=== PATIENT | male | born 1955 | race Caucasian/White ===

== ENCOUNTER 2018-06-09 05:35 | Outpatient (CLI) | payer MEDICARE, OTHER ==
[~2018-06-09] VITALS: Ht 188 cm; Wt 132.9 kg
[2018-06-09] MEDS ORDERED: GLUC-113 PO (12:17)
[2018-06-09] MEDS ORDERED: TRIA1TAB3 PO (12:17)
[2018-06-09] MEDS ORDERED: MULT-1029 PO (12:17)
[2018-06-09] MEDS ORDERED: NF-VITD400 PO (12:17)
[2018-06-09] MEDS ORDERED: SIMV40TA4 PO (12:17)
[2018-06-09] MEDS ORDERED: OMEG100032 PO (12:17)
[2018-06-09] MEDS ORDERED: TERB250T16 PO (12:17)
== END 2018-06-09 12:19 | disposition home or self-care (01) ==
LOC: PREOP 05:35
PROVIDERS: ATTEND Internal Medicine
DX: Z01.818 Encounter for other preprocedural examination (principal)

== ENCOUNTER 2018-06-16 07:08 | Day surgery (SDC) | payer MEDICARE, OTHER ==
--- NOTE | 2018-05-30 19:04 | HISTORY AND PHYSICAL ---
DATE OF SERVICE: COLONOSCOPY HISTORY AND PHYSICAL DATE OF ADMISSION: 06/16/2018. HISTORY OF PRESENT ILLNESS: The patient is a 63-year-old white male referred by Dr. Martínez for screening colonoscopy. He is deemed to be of higher than average risk secondary to a family history of colon cancer. The index case being his father diagnosed at the age of 69 reportedly succumbed to disease about 10 years later at the age of 79. The patient last underwent colonoscopy five and a half years ago. We obtained this record. He had a grade II internal hemorrhoid, but no evidence for neoplasia. No other abnormalities were reported. He reports that he has felt well. He has had no problems with the rectal pain and has had no bright red blood per rectum, melena, bowel habit change or abdominal pain. Weight has been stable with no reported weight loss. PAST MEDICAL HISTORY: Significant for hypertension with no known history of vascular disease. He has a history of mild arthritis and history of hyperlipidemia. MEDICATIONS ON ADMISSION: Include triamterene-hydrochlorothiazide 37.5/25 daily and simvastatin 40 mg at bedtime. He takes Centrum Silver, 400 units of vitamin D with a fish oil soft gel daily, and glucosamine chondroitin sulfate supplement two tabs daily. PAST SURGICAL HISTORY: He had open reduction and internal fixation of wrist fracture several years ago and at the age of 3, he had tonsillectomy and adenoidectomy. SOCIAL HISTORY: He is employed with no past smoking history and no significant alcohol history. PHYSICAL EXAMINATION: GENERAL: Reveals a well-appearing white male in no acute distress. VITAL SIGNS: He is overweight at 293.8 pounds. HEENT: Reveals a Mallampati class 3 oropharyngeal configuration. Pharynx reveals no evidence for erythema or exudate. NECK: Reveals no JVD, adenopathy or bruits. CHEST: Clear to auscultation. CARDIOVASCULAR: Reveals a regular rate and rhythm without murmur, S3 or S4. ABDOMEN: Obese, soft, supple, nontender without mass, tenderness or organomegaly. Bowel sounds are positive. EXTREMITIES: Reveal no cyanosis, clubbing or edema. ASSESSMENT AND PLAN: The patient was set up for screening colonoscopy on 06/16. Prep instructions were given and questions were answered. The rationale for colonoscopy were discussed. Not including dictation time, 35 minutes face to face care time was spent with another 10 minutes of staff time going over prep instructions and setting up the procedure. He is deemed to be of higher than average risk secondary to a first degree relative with colon cancer, see above. I thank you for the referral of this pleasant gentleman. Job ID: [id number] DocumentID: [id number] Dictated Date: 05/19/2018 10:07:14 Milk Receiver Tank Truck Date: 05/19/2018 10:37:24 Dictated By: ARCHIE MILES MD MTDD
[~2018-06-16] VITALS: Ht 188 cm; Wt 132.9 kg
[~2018-06-16 07:08] MED LIST: GLUC-113 PO; MULT-1029 PO; NF-VITD400 PO; OMEG100032 PO; SIMV40TA4 PO; TERB250T16 PO; TRIA1TAB3 PO
[2018-06-16] MEDS ORDERED: D5 LR IV SOLUTION 1,000 ML IV ONE (07:24)
[2018-06-16] MEDS ORDERED: D5 LR IV SOLUTION 1,000 ML IV STA (07:24)
[2018-06-16] MEDS ORDERED: MIDAZOLAM 2 MG/2 ML (VERSED) VIAL IVP ONE (07:30)
[2018-06-16] MEDS ORDERED: fentaNYL INJECTION 100 MCG/2 ML AMP IVP ONE (07:30)
[2018-06-16] MEDS ORDERED: LIDOCAINE JELLY 2% 6 ML SYRINGE MM PRN (07:30)
[2018-06-16 07:33] VITALS: BP 164/88
[2018-06-16] MEDS ORDERED: LIDOCAINE JELLY 2% 6 ML SYRINGE ONE (07:51)
[2018-06-16] MEDS ORDERED: MIDAZOLAM 2 MG/2 ML (VERSED) VIAL ONE ×2 (07:51)
[2018-06-16] MEDS ORDERED: fentaNYL INJECTION 100 MCG/2 ML AMP ONE (07:51)
[2018-06-16 08:40] VITALS: BP 145/68
--- NOTE | 2018-06-16 09:02 | Pre-Op Note & Conscious Sedat ---
Pre-Operative Progress Note H&P Reviewed The H&P was reviewed, patient examined and no changes noted. Date H&P Reviewed: Jun 16, 2018 Time H&P Reviewed: 07:45 Conscious Sedation Pre-Proced ASA Score 2 For ASA 3 and 4: Consider anesthesia and medical clearance. Also, for patients with a history of failed moderate sedation consider anesthesia. Airway Lungs Heart ASA score ASA 1: a normal healthy patient ASA 2: a patient with a mild systemic disease (mid diabetes, controlled hypertension, obesity ASA 3: a patient with a severe systemic disease that limits activity (angina , COPD, prior Myocardial infarction) ASA 4: a patient with an incapacitating disease that is a constant threat to life (CHF, renal failure) ASA 5: a moribund patient not expected to survive 24 hrs. (ruptured aneurysm) ASA 6: a declared brain patient whose organs are being harvested. For emergent operations, add the letter E after the classification Mallampati Classification Grade 3 Sedation Plan Analgesia, Amnesia, Plan communicated to team members, Discussed options with patient/fam, Discussed risks with patient/fam The patient is an appropriate candidate to undergo the planned procedure, sedation, and anesthesia. The patient immediately re-assessed prior to indication. ARCHIE MILES MD Jun 16, 2018 09:02
[2018-06-16 09:10] VITALS: BP 142/61
[2018-06-16 10:20] VITALS: BP 142/61
--- NOTE | 2018-06-16 17:07 | OPERATIVE REPORT ---
DATE OF SERVICE: 06/16/2018 COLONOSCOPY SUMMARY INDICATION FOR THE PROCEDURE: Screening colonoscopy. The patient is deemed to be at higher than average risk as his father was diagnosed with colon cancer in his early 60s. DESCRIPTION OF PROCEDURE: The patient was placed in left lateral decubitus position. Prior to undergoing colonoscopy, digital rectal evaluation was performed. Anal sphincter tone was normal and the perianal reflex intact. Due to this patient's body habitus, I was only able to palpate the apex and distal, likely half of the prostate, which was unremarkable, anodular and not enlarged to digital inspection. No abnormalities noted on digital inspection of anal canal or distal rectal vault. The colonoscope was then inserted into the rectum and under direct visualization advanced to the cecum. The cecum was identified by identification of the ileocecal valve and cecal strap. Photographic documentation was obtained. Careful inspection was made as the colonoscope was of withdrawn. The patient tolerated the procedure well. FINDINGS: There is no evidence for internal or external hemorrhoids were noted. The rectum was unremarkable. The sigmoid colon was unremarkable except for a few small diverticula without evidence for diverticulitis. The descending and transverse colon were normal. Hepatic flexure was unremarkable. Present in the mid ascending colon was a 3 x 4 mm sessile adenomatous appearing polyp. It was photographed and biopsied and ablated with no subsequent blood loss. The remainder of the ascending colon and cecum were unremarkable. ASSESSMENT: One diminutive mid ascending adenomatous appearing polyp was biopsied and cauterized today. No other evidence for neoplasia was noted. We will await histopathology report before making surveillance colonoscopy recommendation, likely no longer than 5 years considering family history. The patient had mild diverticular disease confined to the sigmoid colon and due to body habitus, I was only able to palpate roughly the distal half of his prostate that was unremarkable. I thank you for the referral of this pleasant gentleman. Job ID: [id number] DocumentID: [id number] Dictated Date: 06/16/2018 11:58:33 Repair Operator Date: 06/16/2018 17:06:15 Dictated By: ARCHIE MILES MD [facility]
== END 2018-06-16 10:20 | disposition home or self-care (01) ==
LOC: ENDO 07:08
PROVIDERS: ATTEND Internal Medicine
DX: Z12.11 Encounter for screening for malignant neoplasm of colon (principal); D12.2 Benign neoplasm of ascending colon; Z80.0 Family history of malignant neoplasm of digestive organs; K57.30 Diverticulosis of large intestine without perforation or abscess without bleeding; I10 Essential (primary) hypertension; E78.5 Hyperlipidemia, unspecified; Z79.899 Other long term (current) drug therapy
CPT/HCPCS: 88305

== ENCOUNTER 2018-09-27 05:36 | Outpatient (CLI) | payer MEDICARE, OTHER ==
[~2018-09-27] VITALS: Ht 188 cm; Wt 137.0 kg
[2018-09-27] MEDS ORDERED: ECHI125T PO (15:17)
== END 2018-09-27 15:46 | disposition home or self-care (01) ==
LOC: PREOP 05:36
PROVIDERS: ATTEND Podiatrist Foot & Ankle Surgery
DX: Z01.818 Encounter for other preprocedural examination (principal)

== ENCOUNTER 2018-10-02 09:04 | Day surgery (SDC) | payer MEDICARE, OTHER ==
[~2018-10-02] VITALS: Ht 188 cm; Wt 137.0 kg
[~2018-10-02 09:04] MED LIST changes: +ECHI125T PO
[2018-10-02] MEDS ORDERED: LACTATED RINGERS 1,000 ML IV PRN (09:12)
[2018-10-02] MEDS ORDERED: ceFAZolin INJECTION 1,000 MG in WATER (STERILE) FOR INJECTION 10 ML IV ONE (09:15)
[2018-10-02 09:20] VITALS: BP 165/88
[2018-10-02] MEDS ORDERED: ceFAZolin INJECTION 1,000 MG ONE (09:21)
[2018-10-02] MEDS ORDERED: WATER (STERILE) FOR INJECTION 10 ML ONE (09:21)
[2018-10-02] MEDS ORDERED: BUPIVACAINE 0.5% 30 ML (SENSORCAINE) VIAL ONE (09:23)
[2018-10-02] MEDS ORDERED: LIDOCAINE 1% INJ 20 ML 20 ML VIAL ONE (09:23)
[2018-10-02] MEDS ORDERED: fentaNYL INJECTION 100 MCG/2 ML AMP ONE (09:27)
[2018-10-02] MEDS ORDERED: MIDAZOLAM 2 MG/2 ML (VERSED) VIAL ONE (09:27)
[2018-10-02] MEDS ORDERED: CATHETER FLUSH 10 ML SYR IV PRN (09:45)
--- NOTE | 2018-10-02 09:45 | Progress Note-Pre Operative ---
Pre-Operative Progress Note H&P Reviewed The H&P was reviewed, patient examined and no changes noted. Date Seen by Provider: Oct 02, 2018 Time Seen by Provider: :44 Date H&P Reviewed: Oct 02, 2018 Time H&P Reviewed: 09:44 Pre-Operative Diagnosis: Hammertoe Left Hallux MERCEDES LUX DPM Oct 02, 2018 09:45
[2018-10-02] MEDS ORDERED: PROPOFOL INJECTION 50 ML IV ONE ×2 (10:08→10:36)
[2018-10-02] MEDS ORDERED: ONDANSETRON 4 MG/2 ML (SDV) Z0FRAN ONE (10:09)
[2018-10-02] MEDS ORDERED: LACTATED RINGERS 1,000 ML IV SCH (11:01)
--- NOTE | 2018-10-02 11:01 | Progress Note-Post Operative ---
Post-Operative Progess Note Surgeon (s)/Electrical Checkout Mechanic (s) Surgeon MERCEDES LUX DPM Electrical Checkout Mechanic: none Pre-Operative Diagnosis Hammertoe Left Hallux Post-Operative Diagnosis Same Procedure & Operative Findings Date of Procedure 10/02/18 Procedure Performed/Findings Arthrodesis of the interphalangeal joint left hallux Anesthesia Type MAC Estimated Blood Loss Estimated blood loss (mL): Minimal Specimens/Packing Specimens Removed None MERCEDES LUX DPM Oct 02, 2018 11:01
[2018-10-02] MEDS ORDERED: CEPH500C PO (11:06)
[2018-10-02] MEDS ORDERED: ACHD5005 PO (11:06)
[2018-10-02] MEDS ORDERED: HYDROcodone/APAP 5 MG/325 MG (LORTAB) TAB PO PRN (11:15)
[2018-10-02] MEDS ORDERED: ONDANSETRON 4 MG/2 ML (SDV) Z0FRAN IVP PRN (11:15)
[2018-10-02] MEDS ORDERED: HYDROmorphone 2 MG/ML VIAL (DILAUDID) IV ONE (11:15)
[2018-10-02 11:30] VITALS: BP 132/89
[2018-10-02 12:00] VITALS: BP 121/69
--- NOTE | 2018-10-02 16:07 | Diagnostic Imaging Report ---
INDICATION: Arthritis. FINDINGS: There has been external fixation of the interphalangeal joint of the left great toe. Alignment is grossly normal. There are otherwise mild degenerative changes. There is no acute fracture or dislocation. IMPRESSION: Postsurgical changes in left great toe as described. Dictated by: Dictated on workstation # [id number]
--- NOTE | 2018-10-02 16:45 | OPERATIVE REPORT ---
DATE OF SERVICE: 10/02/2018 SURGEON: Carla Franco DPM. PREOPERATIVE DIAGNOSIS: Hallux malleus, left with a history of ulceration to the tip of the toe. 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 PROCEDURE: Arthrodesis, left hallux interphalangeal joint. WOUND CLASS: Clean. ANESTHESIA: Monitored anesthesia care. HEMOSTASIS: Pneumatic ankle tourniquet 250 mmHg. INDICATIONS: This 63-year-old male presents complaining of a chronic wound to the left hallux. After several weeks of treatment, the wound has healed, but due to his hallux malleus deformity, it is likely to be a problem in the future. To realign the toe, I recommended an arthrodesis of the left hallux, which the patient is agreeable to after risks and complications were discussed at length. No guarantees were extended to the patient and he is willing to proceed. DESCRIPTION OF PROCEDURE: The patient was brought back to the operating table, placed in secure supine position. Appropriate timeout was performed. Utilizing aseptic technique, the left hallux was anesthetized utilizing 10 mL of 0.5% Marcaine plain. Pneumatic ankle tourniquet was placed on the left lower extremity over several layers of padding. The left foot was then prepped and draped in the normal sterile manner. The left foot was then elevated and allowed to exsanguinate after which the tourniquet was inflated to 250 mmHg. Attention was then directed to the dorsal aspect of the left hallux where a 2 cm longitudinal linear incision was created from the dorsal aspect of the proximal phalanx to the interphalangeal joint where the incision was then "T"ed to a coronal incision to the medial and lateral aspect of the interphalangeal joint area. The incision was deepened in the same plane with great care to identify and retract all vital neurovascular structures. All the necessary blood vessels were cauterized as encountered. The incision was deepened down to the extensor tendon overlying the proximal phalanx where a Z slide lengthening was performed. The extensor tendon was reflected proximally and distally and the medial lateral collateral ligaments and the dorsal capsule of the interphalangeal joint was released. Next, utilizing a power sagittal saw, the head of the proximal phalanx was reduced and all the articular cartilage removed. Next, utilizing a rongeur and a bur and hand rasp, the base of the distal phalanx cartilage was removed. The wound was flushed with copious amounts of normal saline. Next, utilizing a 0.062 smooth K-wire, the base of the distal phalanx and the head of the proximal phalanx were fenestrated. The 0.062 K wire was then crossed from distal to proximal across the arthrodesis site into the proximal phalanx. Excellent bony apposition and fixation was appreciated at this time. The excess K-wire coming out the end of the toe were cut and bent and secured in place with Coban wrap. The wound was flushed once again after which closure was performed in layers. Deep closure was performed with 3-0 Vicryl, superficial with 4-0 Vicryl, skin closed with 4-0 Prolene in a simple and horizontal mattress type stitch. Postoperative dressing consisted of Betadine soaked Adaptic, sterile 4 x 4's, sterile Kerlix, all secured with Coban wrap. The patient tolerated the anesthesia and procedure well and was transported from the operating room to the recovery area with vital signs stable and vascular status intact to all digits of the left foot. He is to follow up in my office in 10 days' period of time. He is to be partial weightbearing with the use of walker. A prescription for Keflex and Vicodin were dispensed to the patient today. Job ID: [id number] DocumentID: [id number] Dictated Date: 10/02/2018 11:12:15 Security Specialist Date: 10/02/2018 16:44:39 Dictated By: IRVIN PADILLA
== END 2018-10-02 12:28 | disposition home or self-care (01) ==
LOC: SDC 09:04
PROVIDERS: ATTEND Podiatrist Foot & Ankle Surgery
DX: M20.32 Hallux varus (acquired), left foot (principal); Z11.2 Encounter for screening for other bacterial diseases; I10 Essential (primary) hypertension; E78.2 Mixed hyperlipidemia; E34.8 Other specified endocrine disorders; G47.33 Obstructive sleep apnea (adult) (pediatric); Z79.899 Other long term (current) drug therapy; G62.9 Polyneuropathy, unspecified; E66.9 Obesity, unspecified; Z68.38 Body mass index [BMI] 38.0-38.9, adult
CPT/HCPCS: 73620; 87081

== ENCOUNTER 2018-11-02 05:37 | Outpatient (CLI) | payer MEDICARE, OTHER ==
[~2018-11-02] VITALS: Ht 188 cm; Wt 137.0 kg
[~2018-11-02 05:37] MED LIST changes: +ACHD5005 PO; +CEPH500C PO
[2018-11-02] MEDS ORDERED: AMLO5TAB4 PO (12:14)
[2018-11-02] MEDS ORDERED: SULF1TAB35 PO (12:14)
[2018-11-03] MEDS ORDERED: ACHD5005 PO (14:59)
== END 2018-11-02 12:24 | disposition home or self-care (01) ==
LOC: PREOP 05:37
PROVIDERS: ATTEND Podiatrist Foot & Ankle Surgery
DX: Z01.818 Encounter for other preprocedural examination (principal)

== ENCOUNTER 2018-11-03 12:05 | Day surgery (SDC) | payer MEDICARE, OTHER ==
[~2018-11-03] VITALS: Ht 188 cm; Wt 137.0 kg
[~2018-11-03 12:05] MED LIST changes: +AMLO5TAB4 PO; +SULF1TAB35 PO
[2018-11-03] MEDS ORDERED: LACTATED RINGERS 1,000 ML IV PRN (12:13)
[2018-11-03 12:30] VITALS: BP 142/99
[2018-11-03] MEDS ORDERED: VANCOMYCIN INJECTION 1,000 MG in NS (IVPB) 250 ML IV ONE (12:30)
[2018-11-03] MEDS ORDERED: CATHETER FLUSH 10 ML SYR IV PRN (12:45)
[2018-11-03] MEDS ORDERED: proPOfol 200 MG/20 ML (DIPRIVAN) VIAL IV ONE ×2 (13:13→14:23)
[2018-11-03] MEDS ORDERED: ONDANSETRON 4 MG/2 ML (SDV) Z0FRAN ONE (13:13)
[2018-11-03] MEDS ORDERED: PROPOFOL INJECTION 50 ML IV ONE (13:13)
[2018-11-03] MEDS ORDERED: DEXAMETHASONE 10 MG/ML (DECADRON) 1 ML VIAL ONE (13:14)
[2018-11-03] MEDS ORDERED: fentaNYL INJECTION 100 MCG/2 ML AMP ONE (13:24)
[2018-11-03] MEDS ORDERED: MIDAZOLAM 2 MG/2 ML (VERSED) VIAL ONE (13:24)
--- NOTE | 2018-11-03 13:32 | Progress Note-Pre Operative ---
Pre-Operative Progress Note H&P Reviewed The H&P was reviewed, patient examined and no changes noted. Date Seen by Provider: Nov 03, 2018 Time Seen by Provider: 13:31 Date H&P Reviewed: Nov 03, 2018 Time H&P Reviewed: 13:31 Pre-Operative Diagnosis: Osteomyelitis left hallux MERCEDES LUX DPM Nov 03, 2018 13:32
[2018-11-03] MEDS ORDERED: VANCOMYCIN 1000 MG/VIAL ONE ×2 (13:37→13:54)
[2018-11-03] MEDS ORDERED: LIDOCAINE 1% INJ 20 ML 20 ML VIAL ONE (13:42)
[2018-11-03] MEDS ORDERED: BUPIVACAINE 0.5% 30 ML (SENSORCAINE) VIAL ONE (13:42)
[2018-11-03] MEDS ORDERED: GENTAMICIN 40 MG/ML 2 ML INJ SDV ONE (13:54)
--- NOTE | 2018-11-03 14:54 | Progress Note-Post Operative ---
Post-Operative Progess Note Surgeon (s)/Operating Room Orderly (s) Surgeon MERCEDES LUX DPM Operating Room Orderly: None Pre-Operative Diagnosis Osteomyelitis left hallux Post-Operative Diagnosis Same Procedure & Operative Findings Date of Procedure 11/03/18 Procedure Performed/Findings Incision and drainage, excision and biopsy of infected bone with placement of Bone Substitute, all left hallux. Anesthesia Type MAC Estimated Blood Loss Estimated blood loss (mL): Minimal Specimens/Packing Specimens Removed Head of proximal phalanx, base of distal phalanx, left hallux Packing: Stimulan synthetic antibiotic beads MERCEDES LUX DPM Nov 03, 2018 14:54
[2018-11-03] MEDS ORDERED: LACTATED RINGERS 1,000 ML IV SCH (14:56)
[2018-11-03] MEDS ORDERED: ACHD5005 PO (14:59)
[2018-11-03] MEDS ORDERED: HYDROcodone/APAP 5 MG/325 MG (LORTAB) TAB PO PRN (15:00)
[2018-11-03] MEDS ORDERED: HYDROmorphone 2 MG/ML VIAL (DILAUDID) IV ONE (15:00)
[2018-11-03] MEDS ORDERED: ONDANSETRON 4 MG/2 ML (SDV) Z0FRAN IVP PRN (15:00)
[2018-11-03 15:30] VITALS: BP 165/107
--- NOTE | 2018-11-03 15:47 | Physical Therapy Progress Note ---
Therapy Progress Note Saw patient after surgery for osteomyelitis left hallux. Explained his partial weight bearing status on the left side to him. He had been using a walker previously so he did not need training for that. He was taught ankle pumps, heel slides, and quad sets for a home exercise program. PRISCILLA STORY PT Nov 03, 2018 15:47
[2018-11-03 16:00] VITALS: BP 152/97
[2018-11-03 16:30] VITALS: BP 160/101
[2018-11-03] MEDS ORDERED: HYDROcodone/APAP 5 MG/325 MG (LORTAB) TAB ONE (16:32)
[2018-11-03 16:50] VITALS: BP 160/101
--- NOTE | 2018-11-03 19:11 | Diagnostic Imaging Report ---
INDICATION: Infection. FINDINGS: Resections of the mid to distal proximal phalanx of the great toe present with antibiotic radiopacities occupying the operative bed. There is some swelling. No other abnormality. IMPRESSION: Postoperative change. Dictated by: Dictated on workstation # [id number]
--- NOTE | 2018-11-04 01:01 | OPERATIVE REPORT ---
DATE OF SERVICE: 11/03/2018 SURGEON: Carla Lux DPM. PREOPERATIVE DIAGNOSIS: Osteomyelitis, left hallux. POSTOPERATIVE DIAGNOSIS: Osteomyelitis, left hallux. PROCEDURE: Incision and drainage of left hallux with removal of bone and application of bone substitute. WOUND CLASS: Contaminated. ANESTHESIA: Monitored anesthesia care. HEMOSTASIS: Pneumatic ankle tourniquet at 250 mmHg. INDICATIONS: This 63-year-old male presents with a swollen left great toe. The patient had an attempt at an arthrodesis a few weeks back. Unfortunately, the patient had the dressing not only slid down and partially removed according to the patient, but it also became wet on a couple different occasions. Subsequently, there is some cellulitis to the left hallux and the K-wires were removed that were applied for arthrodesis. The patient seemed to respond to the oral antibiotic at her last visit 2 days ago. There were significant changes on x-ray noted affecting the base of the distal phalanx and head of the proximal phalanx of the left hallux. He was subsequently diagnosed with osteomyelitis and various treatment options were discussed. We discussed long-term antibiotics as well as possible amputation as well as bone removal without amputation and this is what he chose to do. No guarantees were extended to the patient. He understands the consequences of not removing the entire infected bone, which can include sepsis, need for further surgeries including amputation, and he is willing to proceed. DESCRIPTION OF PROCEDURE: The patient was brought back to the operating table, placed in secure supine position. Appropriate time out was performed. Pneumatic ankle tourniquet was placed on the left lower extremity over several layers of padding. The left foot was then prepped with alcohol, after which a Mckinney block was performed to the left lower extremity utilizing 16 mL of 1:1 mixture of 1% Xylocaine, 0.5% Marcaine. The left foot was then prepped and draped in normal sterile manner. The left foot was then elevated and allowed to exsanguinate, after which the tourniquet was inflated to 250 mmHg. Attention was then directed to the dorsal aspect of swollen left hallux where a 4 cm longitudinal linear incision was created. The incisions were deepened in the same plane with great care to identify and retract all vital neurovascular structures. The extensor tendon was identified and there was a considerable amount of mucoid changes to the extensor tendon. The poor connective tissue was removed from the foot. The incision was deepened down to bone where considerable amount of soft bone was identified. The power sagittal saw was utilized to cut the mid diaphysis of the proximal phalanx, after which the distal portion of the proximal phalanx and proximal portion of the distal phalanx were sharply removed and sent for gross and microscopic evaluation. A portion of the base of the distal phalanx was sent for culture and sensitivities. No abscess was identified, no purulent pocket. The wound was then flushed with a power irrigation of 1000 mL and infused with 1 gram of vancomycin. Next, the wound was packed with synthetic beads provided by [employer], which had 1 gram of vancomycin powder and 240 mg of gentamicin infused into the beads. The beads were used for bone substitute as well as antibiotic in the area of the removal of infected bone. Closure was then performed in layers. Deep closure was performed with superficial 4-0 Vicryl and skin closure with 4-0 Prolene in a simple interrupted type stitch. The tourniquet was released noting appropriate cap refill time to the left hallux. Postoperative dressing consisted of Betadine soaked Adaptic, sterile 4 x 4, sterile Kerlix all secured with a Coban wrap. The patient tolerated the anesthesia and procedure well, was transported from the operating room to the recovery area with vital signs stable and vascular status intact to all digits of the left foot. The patient is to follow up in my office in 10 days' period of time or sooner if necessary. In the meantime, he is to continue with his Bactrim oral antibiotic. He will continue with partial weightbearing with walker and surgical splint shoe on the left. He is to have minimal weightbearing on the left. Job ID: [id number] DocumentID: [id number] Dictated Date: 11/03/2018 15:16:49 Naval Aircrewman Helicopter Date: 11/04/2018 01:01:34 Dictated By: CARLA LUX DPM
== END 2018-11-03 16:50 | disposition home or self-care (01) ==
LOC: SDC 12:05
PROVIDERS: ATTEND Podiatrist Foot & Ankle Surgery
DX: E11.69 Type 2 diabetes mellitus with other specified complication (principal); M86.172 Other acute osteomyelitis, left ankle and foot; M86.672 Other chronic osteomyelitis, left ankle and foot; L02.612 Cutaneous abscess of left foot; I12.0 Hypertensive chronic kidney disease with stage 5 chronic kidney disease or end stage renal disease; N18.6 End stage renal disease; E11.22 Type 2 diabetes mellitus with diabetic chronic kidney disease; G47.33 Obstructive sleep apnea (adult) (pediatric); G60.9 Hereditary and idiopathic neuropathy, unspecified; E78.5 Hyperlipidemia, unspecified; Z99.2 Dependence on renal dialysis; Z79.02 Long term (current) use of antithrombotics/antiplatelets; Z79.82 Long term (current) use of aspirin; Z79.84 Long term (current) use of oral hypoglycemic drugs; Z79.899 Other long term (current) drug therapy
CPT/HCPCS: 73620; 87070; 87075; 87077; 87081; 87101; 87186; 87205

== ENCOUNTER → 2018-12-01 | Outpatient (CLI) | payer MEDICARE, OTHER | LOC: WOUNDCARE 10:04 | PROVIDERS: ATTEND Surgery | DX: M86.472 Chronic osteomyelitis with draining sinus, left ankle and foot (principal); L97.524 Non-pressure chronic ulcer of other part of left foot with necrosis of bone; G60.8 Other hereditary and idiopathic neuropathies; I70.245 Atherosclerosis of native arteries of left leg with ulceration of other part of foot; T81.31XA Disruption of external operation (surgical) wound, not elsewhere classified, initial encounter | CPT/HCPCS: 99213 ==

== ENCOUNTER → 2018-12-11 | Outpatient (CLI) | payer MEDICARE, OTHER | LOC: WOUNDCARE 11:29 | PROVIDERS: ATTEND Surgery | DX: M86.472 Chronic osteomyelitis with draining sinus, left ankle and foot (principal); I70.245 Atherosclerosis of native arteries of left leg with ulceration of other part of foot; L97.524 Non-pressure chronic ulcer of other part of left foot with necrosis of bone; G60.8 Other hereditary and idiopathic neuropathies; T81.31XA Disruption of external operation (surgical) wound, not elsewhere classified, initial encounter | CPT/HCPCS: 11043 ==

== ENCOUNTER 2018-12-27 13:08 | Outpatient (RCR) | payer MEDICARE, OTHER ==
[2018-11-16] MEDS: DAPTOmycin 500 MG/NS 50 ML IVPB IV SCH ×2 (14:25)
[2018-11-16 16:00] VITALS: BP 133/71
[2018-11-17 14:21] VITALS: BP 123/71
[2018-11-17 14:39] LABS: BUN/CREATININE RATIO 12; CALCIUM 9.1 MG/DL (8.5-10.1); CARBON DIOXIDE 19 MMOL/L (21-32); CHLORIDE 106 MMOL/L (98-107); CREATININE SERUM 0.98 MG/DL (0.60-1.30); GFR ESTIMATED > 60; GLUCOSE 120 MG/DL (70-105); POTASSIUM 4.2 MMOL/L (3.6-5.0); SODIUM 138 MMOL/L (135-145)
[2018-11-17] MEDS: DAPTOmycin 500 MG/NS 50 ML IVPB IV SCH ×2 (14:55)
[2018-11-18] MEDS: DAPTOmycin 500 MG/NS 50 ML IVPB IV SCH ×2 (09:29)
[2018-11-18 10:03] VITALS: BP 135/82
[2018-11-19] MEDS: DAPTOmycin 500 MG/NS 50 ML IVPB IV SCH ×2 (09:29)
[2018-11-19 10:00] VITALS: BP 144/77
[2018-11-20] MEDS: DAPTOmycin 500 MG/NS 50 ML IVPB IV SCH ×2 (14:25)
[2018-11-20 14:35] LABS: HEMOGLOBIN 12.6 G/DL (13.3-17.7); MEAN PLATELET VOLUME 8.4 FL (7.4-10.4); WHITE BLOOD COUNT 5.9 10^3/uL (4.3-11.0)
[2018-11-20 14:56] LABS: BUN/CREATININE RATIO 16; CALCIUM 9.5 MG/DL (8.5-10.1); CARBON DIOXIDE 22 MMOL/L (21-32); CHLORIDE 105 MMOL/L (98-107); CREATINE KINASE 100 U/L (30-200); CREATININE SERUM 0.87 MG/DL (0.60-1.30); GFR ESTIMATED > 60; GLUCOSE 110 MG/DL (70-105); POTASSIUM 4.1 MMOL/L (3.6-5.0); SODIUM 137 MMOL/L (135-145)
[2018-11-20 15:00] VITALS: BP 148/84
[2018-11-21 13:24] VITALS: BP 144/77
[2018-11-21] MEDS: DAPTOmycin 500 MG/NS 50 ML IVPB IV SCH ×2 (13:50)
[2018-11-22] MEDS: DAPTOmycin 500 MG/NS 50 ML IVPB IV SCH ×2 (13:36)
[2018-11-22 13:50] VITALS: BP 141/76
[2018-11-23] MEDS: DAPTOmycin 500 MG/NS 50 ML IVPB IV SCH ×2 (13:37)
[2018-11-23 14:09] VITALS: BP 140/72
[2018-11-24] MEDS: DAPTOmycin 500 MG/NS 50 ML IVPB IV SCH ×2 (13:31)
[2018-11-24 13:39] VITALS: BP 158/80
[2018-11-25] MEDS: DAPTOmycin 500 MG/NS 50 ML IVPB IV SCH ×2 (09:36)
--- NOTE | 2018-11-25 10:10 | NUR ---
RIGHT ARM PICC DRESSING PEELING UP TO THE DISTAL MEDIAL BORDER AND LARGE APPROX 3 CM X 2 CM BLISTER THAT IS BROKEN OPEN OBSERVED WITH SEROUS DRAINAGE OBSERVED. ALSO, REDNESS OBSERVED TO THE PROXIMAL ASPECT OF THE PICC DRESSING WHERE DRESSING IS STARTING TO PEEL BACK. TOP DRESSING REMOVED AND AREA CLEANSED WITH CHLORAPREP, AND BORDERS WHERE DRESSING WILL BE APPLIED PREPPED WITH SKIN PREP, NEW BIOPATCH APPLIED AND GREEN OPSITE APPLIED OVER PICC SITE. TELFA DRESSING APPLIED OVER BLISTERED AREA AND SECURED WITH PAPER TAPE, INSTRUCTED PT TO KEEP DRESSING CLEAN AND DRY AND TO FOLLOW UP WITH PRIMARY CARE PROVIDER AND TO NOTIFY IMMEDIATELY IN FURTHER WORSENING OF WOUND.
[2018-11-25 10:11] VITALS: BP 144/81
[2018-11-26] MEDS: DAPTOmycin 500 MG/NS 50 ML IVPB IV SCH ×2 (09:35)
[2018-11-26 09:50] VITALS: BP 142/77
[2018-11-27] MEDS: DAPTOmycin 500 MG/NS 50 ML IVPB IV SCH ×2 (13:36)
[2018-11-27 13:37] VITALS: BP 168/88
[2018-11-27 13:41] LABS: HEMOGLOBIN 13.2 G/DL (13.3-17.7); RED CELL DISTRIBUTION WIDTH 14.2 % (10.0-14.5); WHITE BLOOD COUNT 5.4 10^3/uL (4.3-11.0)
[2018-11-27 13:57] LABS: BUN/CREATININE RATIO 17; CALCIUM 9.6 MG/DL (8.5-10.1); CARBON DIOXIDE 23 MMOL/L (21-32); CHLORIDE 103 MMOL/L (98-107); CREATINE KINASE 127 U/L (30-200); CREATININE SERUM 0.89 MG/DL (0.60-1.30); GFR ESTIMATED > 60; GLUCOSE 126 MG/DL (70-105); POTASSIUM 4.2 MMOL/L (3.6-5.0); SODIUM 137 MMOL/L (135-145)
[2018-11-28] MEDS: DAPTOmycin 500 MG/NS 50 ML IVPB IV SCH ×2 (13:35)
[2018-11-28 14:12] VITALS: BP 146/84
[2018-11-29] MEDS: DAPTOmycin 500 MG/NS 50 ML IVPB IV SCH ×2 (13:25)
[2018-11-29 14:05] VITALS: BP 137/78
[2018-11-30] MEDS: DAPTOmycin 500 MG/NS 50 ML IVPB IV SCH ×2 (13:22)
[2018-11-30 14:00] VITALS: BP 147/75
[2018-12-01 13:20] VITALS: BP 145/71
[2018-12-01] MEDS: DAPTOmycin 500 MG/NS 50 ML IVPB IV SCH ×2 (13:22)
[2018-12-02] MEDS: DAPTOmycin 500 MG/NS 50 ML IVPB IV SCH ×2 (09:35)
[2018-12-02 09:41] VITALS: BP 130/76
[2018-12-03] MEDS: DAPTOmycin 500 MG/NS 50 ML IVPB IV SCH ×2 (09:38)
[2018-12-03 09:44] VITALS: BP 133/78
[2018-12-04 13:38] VITALS: BP 130/80
[2018-12-04] MEDS: DAPTOmycin 500 MG/NS 50 ML IVPB IV SCH ×2 (13:38)
[2018-12-04 13:47] LABS: HEMOGLOBIN 13.6 G/DL (13.3-17.7); MEAN PLATELET VOLUME 9.6 FL (7.4-10.4); RED CELL DISTRIBUTION WIDTH 14.1 % (10.0-14.5); WHITE BLOOD COUNT 7.3 10^3/uL (4.3-11.0)
[2018-12-04 14:05] LABS: BUN/CREATININE RATIO 16; CALCIUM 9.7 MG/DL (8.5-10.1); CARBON DIOXIDE 22 MMOL/L (21-32); CHLORIDE 102 MMOL/L (98-107); CREATINE KINASE 109 U/L (30-200); CREATININE SERUM 0.87 MG/DL (0.60-1.30); GFR ESTIMATED > 60; GLUCOSE 100 MG/DL (70-105); POTASSIUM 3.9 MMOL/L (3.6-5.0); SODIUM 136 MMOL/L (135-145)
[2018-12-05 13:20] VITALS: BP 160/79
[2018-12-05] MEDS: DAPTOmycin 500 MG/NS 50 ML IVPB IV SCH ×2 (13:40)
[2018-12-06] MEDS: DAPTOmycin 500 MG/NS 50 ML IVPB IV SCH ×2 (13:28)
[2018-12-06 14:05] VITALS: BP 132/72
[2018-12-07] MEDS: DAPTOmycin 500 MG/NS 50 ML IVPB IV SCH ×2 (13:42)
[2018-12-07 13:56] VITALS: BP 131/75
[2018-12-07 14:20] VITALS: BP 131/75
[2018-12-08] MEDS: DAPTOmycin 500 MG/NS 50 ML IVPB IV SCH ×2 (13:21)
[2018-12-08 14:03] VITALS: BP 142/86
[2018-12-09 09:36] VITALS: BP 129/83
[2018-12-09] MEDS: DAPTOmycin 500 MG/NS 50 ML IVPB IV SCH ×2 (09:36)
[2018-12-10 09:28] VITALS: BP 133/81
[2018-12-10] MEDS: DAPTOmycin 500 MG/NS 50 ML IVPB IV SCH ×2 (09:40)
[2018-12-11] MEDS: DAPTOmycin 500 MG/NS 50 ML IVPB IV SCH ×2 (13:26)
[2018-12-11 13:49] LABS: MEAN PLATELET VOLUME 9.5 FL (7.4-10.4); RED CELL DISTRIBUTION WIDTH 13.8 % (10.0-14.5); WHITE BLOOD COUNT 7.5 10^3/uL (4.3-11.0)
[2018-12-11 14:00] VITALS: BP 137/78
[2018-12-11 14:03] LABS: BUN/CREATININE RATIO 14; CALCIUM 9.8 MG/DL (8.5-10.1); CARBON DIOXIDE 25 MMOL/L (21-32); CHLORIDE 102 MMOL/L (98-107); CREATINE KINASE 123 U/L (30-200); CREATININE SERUM 0.95 MG/DL (0.60-1.30); GFR ESTIMATED > 60; GLUCOSE 122 MG/DL (70-105); POTASSIUM 3.9 MMOL/L (3.6-5.0); SODIUM 138 MMOL/L (135-145)
[2018-12-12] MEDS: DAPTOmycin 500 MG/NS 50 ML IVPB IV SCH ×2 (13:40)
[2018-12-12 14:02] VITALS: BP 130/80
[2018-12-13 13:20] VITALS: BP 144/80
[2018-12-13] MEDS: DAPTOmycin 500 MG/NS 50 ML IVPB IV SCH ×2 (13:30)
[2018-12-14] MEDS: DAPTOmycin 500 MG/NS 50 ML IVPB IV SCH ×2 (13:33)
[2018-12-14 14:10] VITALS: BP 140/73
[2018-12-15] MEDS: DAPTOmycin 500 MG/NS 50 ML IVPB IV SCH ×2 (13:30)
[2018-12-15 14:10] VITALS: BP 162/94
[2018-12-16] MEDS: DAPTOmycin 500 MG/NS 50 ML IVPB IV SCH ×2 (09:38)
[2018-12-16 09:39] VITALS: BP 142/73
[2018-12-17 09:30] VITALS: BP 137/86
[2018-12-17] MEDS: DAPTOmycin 500 MG/NS 50 ML IVPB IV SCH ×2 (09:37)
[2018-12-18] MEDS: DAPTOmycin 500 MG/NS 50 ML IVPB IV SCH ×2 (11:19)
[2018-12-18 11:29] LABS: HEMOGLOBIN 13.3 G/DL (13.3-17.7); MEAN PLATELET VOLUME 9.1 FL (7.4-10.4); RED CELL DISTRIBUTION WIDTH 14.1 % (10.0-14.5); WHITE BLOOD COUNT 7.1 10^3/uL (4.3-11.0)
[2018-12-18 11:46] LABS: BUN/CREATININE RATIO 14; CALCIUM 9.2 MG/DL (8.5-10.1); CARBON DIOXIDE 20 MMOL/L (21-32); CHLORIDE 105 MMOL/L (98-107); CREATININE SERUM 0.93 MG/DL (0.60-1.30); GFR ESTIMATED > 60; GLUCOSE 135 MG/DL (70-105); POTASSIUM 3.9 MMOL/L (3.6-5.0); SODIUM 138 MMOL/L (135-145)
[2018-12-18 11:56] VITALS: BP 140/77
[2018-12-18 12:04] LABS: CREATINE KINASE 153 U/L (30-200)
[2018-12-19] MEDS: DAPTOmycin 500 MG/NS 50 ML IVPB IV SCH ×2 (13:30)
[2018-12-19 14:05] VITALS: BP 137/89
[2018-12-20 13:28] VITALS: BP 126/82
[2018-12-20] MEDS: DAPTOmycin 500 MG/NS 50 ML IVPB IV SCH ×2 (13:35)
[2018-12-21] MEDS: DAPTOmycin 500 MG/NS 50 ML IVPB IV SCH ×2 (13:40)
[2018-12-21 14:15] VITALS: BP 138/80
[2018-12-22] MEDS: DAPTOmycin 500 MG/NS 50 ML IVPB IV SCH ×2 (13:52)
[2018-12-22 14:30] VITALS: BP 126/80
[2018-12-23] MEDS: DAPTOmycin 500 MG/NS 50 ML IVPB IV SCH ×2 (09:43)
[2018-12-23 10:16] VITALS: BP 148/93
[2018-12-24 09:20] VITALS: BP 160/89
[2018-12-24] MEDS: DAPTOmycin 500 MG/NS 50 ML IVPB IV SCH ×2 (09:48)
[2018-12-25] MEDS: DAPTOmycin 500 MG/NS 50 ML IVPB IV SCH ×2 (13:19)
[2018-12-25 13:28] VITALS: BP 122/89
[2018-12-25 13:35] LABS: MEAN PLATELET VOLUME 9.4 FL (7.4-10.4); RED CELL DISTRIBUTION WIDTH 13.8 % (10.0-14.5); WHITE BLOOD COUNT 6.5 10^3/uL (4.3-11.0)
[2018-12-25 13:53] LABS: BUN/CREATININE RATIO 15; CALCIUM 9.6 MG/DL (8.5-10.1); CARBON DIOXIDE 20 MMOL/L (21-32); CHLORIDE 102 MMOL/L (98-107); CREATINE KINASE 135 U/L (30-200); CREATININE SERUM 0.99 MG/DL (0.60-1.30); GFR ESTIMATED > 60; GLUCOSE 125 MG/DL (70-105); POTASSIUM 4.1 MMOL/L (3.6-5.0); SODIUM 136 MMOL/L (135-145)
[2018-12-26 13:10] VITALS: BP 148/85
[2018-12-26] MEDS: DAPTOmycin 500 MG/NS 50 ML IVPB IV SCH ×2 (13:30)
[~2018-12-27] VITALS: Ht 188 cm; Wt 137.0 kg
[2018-12-27] MEDS: DAPTOmycin 500 MG/NS 50 ML IVPB IV SCH ×2 (13:27)
[2018-12-27 14:07] VITALS: BP 145/85
== END 2018-12-27 14:07 | disposition home or self-care (01) ==
LOC: SDC 13:08
PROVIDERS: ATTEND Specialist
DX: M86.9 Osteomyelitis, unspecified (principal); B95.62 Methicillin resistant Staphylococcus aureus infection as the cause of diseases classified elsewhere
CPT/HCPCS: 36415; 80048; 82550; 85027; 85652; 86141; 96365; 99211